=== PATIENT | male | born 1970 | race Caucasian/White ===

== ENCOUNTER 2020-06-22 18:05 | Emergency (ER) | payer OTHER ==
[~2020-06-22] VITALS: Ht 162.6 cm; Wt 71.7 kg
[2020-06-22] MEDS ORDERED: DRAMAMINE LESS25 MG PO (18:15)
== END 2020-06-22 22:29 | disposition home or self-care (01) ==
LOC: ER 18:05
DX: H81.13 Benign paroxysmal vertigo, bilateral (principal)